=== PATIENT | female | born 1985 ===

== ENCOUNTER 2017-03-09 18:01 | Emergency (ER) | payer OTHER ==
[2017-03-09 18:12] VITALS: O2SAT 100
[2017-03-09] MEDS ORDERED: Iohexol 240 (50 ml) PO ONE (19:33)
[2017-03-09] MEDS ORDERED: Sodium Chloride 0.9% 1,000 ML IV STA (19:33)
--- NOTE | 2017-03-09 20:08 | ED PDOC ---
HPI: Abdomen Time Seen by Provider: 03/09/17 19:31 Chief Complaint (Nursing): Abdominal Pain Chief Complaint (Provider): abdominal pain History Per: Patient History/Exam Limitations: no limitations Associated Symptoms: Fever, Chills, Nausea, Vomiting, Diarrhea, Loss Of Appetite , Back Pain. denies: Chest Pain, Constipation, Urinary Symptoms Additional Complaint(s): 31yo F in ED with headache isolated to left side of head with photophobia mild nausea and abdominal pain (lower) with sweating profusely today with nausea and vomiting and diarrhea x 4-5days without sick contacts or foreign travel. Pt admits to feeling chills and body aches. Pt admits to hx of : liver lesions- with malignant tumor resection, endometriosis, PCOS, migraines, vertigo, hx of hypoglycemia and hx of hypotension, brain tumors and cervical cancer. Abnormal Vaginal Bleeding: No Past Medical History Reviewed: Historical Data, Nursing Documentation, Vital Signs Vital Signs: Last Vital Signs Temp 98.4 F 03/09/17 18:07 Pulse 60 03/09/17 18:07 Resp 19 03/09/17 18:07 BP 116/72 03/09/17 18:07 Pulse Ox 100 03/09/17 18:07 - Medical History PMH: Migraine, Seizures - Surgical History Surgical History: Cholecystectomy - Family History Family History: States: Unknown Family Hx - Home Medications Home Medications: Ambulatory Orders Medication Instructions Recorded Naproxen [Naprosyn] 500 mg PO Q12H #20 tab 11/09/15 Ciprofloxacin [Cipro] 500 mg PO BID #28 tab 02/14/16 Doxycycline Monohydrate [Mondoxyne 100 mg PO BID #28 capsule 02/14/16 Nl] Oxycodone HCl/Acetaminophen 1 tab PO Q4 PRN #20 tab 02/14/16 [Percocet 325 mg-5 mg] traMADol [Ultram] 50 mg PO TID PRN #20 tab 02/14/16 Ondansetron ODT [Zofran ODT] 4 mg PO Q8 PRN #12 odt 06/09/16 - Allergies Allergies/Adverse Reactions: Allergies Allergy/AdvReac Type Severity Reaction Status Date / Time No Known Allergies Allergy Verified 10/24/16 15:34 Review of Systems ROS Statement: Except As Marked, All Systems Reviewed And Found Negative Constitutional: Positive for: Fever, Chills Gastrointestinal: Positive for: Nausea, Vomiting, Abdominal Pain, Diarrhea Neurological: Positive for: Headache Physical Exam - Reviewed Nursing Documentation Reviewed: Yes Vital Signs Reviewed: Yes - Physical Exam Appears: Positive for: Non-toxic, No Acute Distress, Uncomfortable Head Exam: Positive for: ATRAUMATIC, NORMAL INSPECTION, NORMOCEPHALIC Skin: Positive for: Normal Color, Warm, DRY Eye Exam: Positive for: EOMI, Normal appearance, PERRL ENT: Positive for: Normal ENT Inspection Cardiovascular/Chest: Positive for: Regular Rate, Rhythm Respiratory: Positive for: CNT, Normal Breath Sounds Gastrointestinal/Abdominal: Positive for: Bowel Sounds, Soft, Tenderness (lower abd tenderness). Negative for: Organomegaly, Mass, Distended, Guarding Back: Positive for: Normal Inspection. Negative for: L CVA Tenderness, R CVA Tenderness Extremity: Positive for: Normal ROM Neurologic/Psych: Positive for: Alert, sheet metal helper II-XII (intact), Oriented, Mood/ Affect (intact), Cerebellar Tests (stable), Gait (stable). Negative for: Motor/ Sensory Deficits - ECG O2 Sat by Pulse Oximetry: 100 - Progress ED Course And Treament: pt will get NS, zofran and torodol for RUIZ and ab pain, will get CT scan of abd with PO and IV contrast and will cbc/cmp/UA Disposition - Clinical Impression Clinical Impression: Abdominal pain - Patient ED Disposition Is Patient to be Admitted: Transfer of Care - Disposition Referrals: Olivia Mercer MD [Primary Care Provider] - Disposition Time: 20:10 Condition: STABLE Patient Signed Over To: Altagracia Costa Handoff Comments: lab/Ct results
[2017-03-09 20:25] LABS: BASO # 0.1 K/uL (0.0-0.2); BASO % 0.7 % (0.0-2.0); EOS # 0.3 K/uL (0.0-0.7); HEMATOCRIT 42.1 % (34.0-47.0); LYMPH % 35.9 % (20.0-40.0); MEAN CELL VOLUME 88.1 fl (81.0-99.0); MEAN CORPUSCULAR HEMOGLOBIN 29.7 pg (27.0-31.0); MEAN CORPUSCULAR HGB CONC 33.7 g/dL (33.0-37.0); MEAN PLATELET VOLUME 8.4 fl (7.2-11.7); MONO # 0.5 K/uL (0.0-0.8); MONO % 6.2 % (0.0-10.0); NEUT # 4.5 K/uL (1.8-7.0); NEUT % 53.2 % (50.0-75.0); RED CELL DISTRIBUTION WIDTH 12.7 % (11.5-14.5); WHITE BLOOD COUNT 8.4 K/uL (4.8-10.8)
[2017-03-09 20:36] LABS: ALB/GLOB RATIO 1.4 (1.0-2.1); ALKALINE PHOSPHATASE 61 U/L (38-126); ALT/SGPT 24 U/L (9-52); AST/SGOT 21 U/L (14-36); BILIRUBIN,TOTAL 0.5 mg/dl (0.2-1.3); BLOOD UREA NITROGEN 9 mg/dl (7-17); CARBON DIOXIDE 24 mmol/L (22-30); CHLORIDE 104 mmol/L (98-107); GFR AFRICAN-AMERICAN > 60; GLUCOSE,RANDOM 83 mg/dL (65-105); POTASSIUM 3.9 MMOL/L (3.6-5.0); SODIUM 138 mmol/l (132-148); TOTAL PROTEIN 7.5 G/DL (6.3-8.2)
[2017-03-09 21:17] LABS: LIPASE 74 U/L (23-300)
[2017-03-09] MEDS ORDERED: Iohexol 240 (50 ml) ONE (21:27)
[2017-03-09 21:43] LABS: RBC URINE 2 /hpf (0-3); URINE BILIRUBIN NEGATIVE (NEGATIVE); URINE BLOOD NEGATIVE (NEGATIVE); URINE COLOR STRAW (YELLOW); URINE GLUCOSE (UA) NEG (Normal); URINE KETONE NEGATIVE (NEGATIVE); URINE LEUKOCYTE ESTERASE NEG Leu/uL (Negative); URINE PROTEIN NEGATIVE (NEGATIVE); URINE UROBILINOGEN 0.2-1.0 mg/dL (0.2-1.0); WBC URINE < 1 /hpf (0-5)
[2017-03-09] MEDS ORDERED: Sodium Chloride 0.9% 50 ML IV ONE (23:34)
[2017-03-09] MEDS ORDERED: Iohexol 300 100 ML IJ ONE (23:34)
--- NOTE | 2017-03-10 00:26 | CT ---
EXAM: CT Abdomen and Pelvis With Intravenous Contrast CLINICAL HISTORY: 31 years old, female; Pain; Abdominal pain; Localized; Lower; Prior surgery; Surgery date: 6+ months; Surgery type: Gall bladder removed. Liver small piece removed; Additional info: Severe abd pain lower aspect TECHNIQUE: Axial computed tomography images of the abdomen and pelvis with intravenous contrast. This CT exam was performed using one or more of the following dose reduction techniques: automated exposure control, adjustment of the mA and/or kV according to patient size, and/or use of iterative reconstruction technique. Coronal and sagittal reformatted images were created and reviewed. CONTRAST: 90 mL of [id number] administered intravenously. COMPARISON: CT - ABD PELVIS PO IV CONTRAST 10/24/2016 7:02:24 PM FINDINGS: Lower thorax: Minimal atelectasis. Probable small hiatal hernia. ABDOMEN: Liver: 6.0 x 4.7 x 6.3 cm lesion, indeterminate by CT criteria but grossly stable. Few too small to characterize lesions. Gallbladder and bile ducts: Cholecystectomy. No ductal dilation. Pancreas: No ductal dilation. No mass. Spleen: No splenomegaly. Adrenals: No mass. Kidneys and ureters: No mass. No hydronephrosis. Stomach and bowel: No definite mural thickening. No obstruction. Appendix: Normal caliber. No inflammation. PELVIS: Bladder: Unremarkable. Reproductive: 3.1 x 2.9 x 3.5 cm hypodense lesion within RIGHT ovary. ABDOMEN and PELVIS: Intraperitoneal space: No significant fluid collection. No free air. Bones/joints: No acute fracture. Soft tissues: Unremarkable. Vasculature: Unremarkable. No abdominal aortic aneurysm. Lymph nodes: No pathologically enlarged lymph nodes. IMPRESSION: 1. Probable RIGHT ovarian cyst. Consider ultrasound. 2. Liver lesion, incompletely characterized. Recommend nonemergent MRI. 3. Incidental/non-acute findings are described above.
--- NOTE | 2017-03-10 00:29 | ED PDOC ---
- Laboratory Results Result Diagrams: 03/09/17 20:10 03/09/17 20:10 - ECG O2 Sat by Pulse Oximetry: 100 - Progress ED Course And Treament: case endorsed to freelance writer from Gerald STOUT pending labs, CT abd/pelvis EXAM: CT Abdomen and Pelvis With Intravenous Contrast CLINICAL HISTORY: 31 years old, female; Pain; Abdominal pain; Localized; Lower; Prior surgery; Surgery date: 6+ months; Surgery type: Gall bladder removed. Liver small piece removed; Additional info: Severe abd pain lower aspect TECHNIQUE: Axial computed tomography images of the abdomen and pelvis with intravenous contrast. This CT exam was performed using one or more of the following dose reduction techniques : automated exposure control, adjustment of the mA and/or kV according to patient size, and/ or use of iterative reconstruction technique. Coronal and sagittal reformatted images were created and reviewed. CONTRAST: 90 mL of [id number] administered intravenously. COMPARISON: CT - ABD PELVIS PO IV CONTRAST 10/24/2016 7:02:24 PM FINDINGS: Lower thorax: Minimal atelectasis. Probable small hiatal hernia. ABDOMEN: Liver: 6.0 x 4.7 x 6.3 cm lesion, indeterminate by CT criteria but grossly stable. Few too small to characterize lesions. Gallbladder and bile ducts: Cholecystectomy. No ductal dilation. Pancreas: No ductal dilation. No mass. Spleen: No splenomegaly. Adrenals: No mass. Kidneys and ureters: No mass. No hydronephrosis. Stomach and bowel: No definite mural thickening. No obstruction. Appendix: Normal caliber. No inflammation. PELVIS: Bladder: Unremarkable. Reproductive: 3.1 x 2.9 x 3.5 cm hypodense lesion within RIGHT ovary ABDOMEN and PELVIS: Intraperitoneal space: No significant fluid collection. No free air. Bones/joints: No acute fracture. Soft tissues: Unremarkable. Vasculature: Unremarkable. No abdominal aortic aneurysm. Lymph nodes: No pathologically enlarged lymph nodes. IMPRESSION: 1. Probable RIGHT ovarian cyst. Consider ultrasound. 2. Liver lesion, incompletely characterized. Recommend nonemergent MRI. 3. Incidental/non-acute findings are described above. EXAM: US Pelvis Complete, Transabdominal CLINICAL HISTORY: 31 years old, female; Pain; Pelvic pain; Additional info: Right pelvic pain TECHNIQUE: Real-time transabdominal pelvic ultrasound (complete) with image documentation. COMPARISON: CT - ABD PELVIS PO IV CON 03/09/2017 11:46:02 PM FINDINGS: Uterus/cervix: Uterus measures 10.5 x 3.4 x 6.8 cm in size. No myometrial mass. Endometrium: 1.1 cm in thickness. Right ovary: 5.9 x 4.7 x 3.9 cm in size. 2.8 x 2.9 x 3.9 cm hypoechoic lesion with internal echoes. Normal flow. Left ovary: 3.9 x 2.0 x 1.9 cm in size. No mass. Normal flow. Free fluid: No significant free fluid. Bladder: Unremarkable as visualized. IMPRESSION: 1. Probable hemorrhagic RIGHT ovarian cyst. Recommend sonographic followup in 6 weeks to ensure resolution and exclude other etiologies. 2. Incidental/non-acute findings are described above. On re-eval, patient states she is feeling better;tolerating PO. Patient aware of liver lesion, being followed by specialist for it. Patient states she is due for colonoscopy and will schedule one vicky for further eval. Rx zofran provided. Follow up PMD/[facility] Consult[facility]/GI. Return to ED for worsening/concerning symptoms. Disposition - Clinical Impression Clinical Impression: Abdominal pain, Ovarian cyst, Liver lesion - POA Present On Arrival: None - Disposition Referrals: Olivia Mercer MD [Primary Care Provider] - Disposition: Routine/Home Disposition Time: 02:28 Condition: IMPROVED Prescriptions: Ondansetron [Zofran Odt] 4 mg PO Q8 PRN #10 odt PRN Reason: Nausea/Vomiting Instructions: Ovarian Cyst (ED), Abdominal Pain (ED)
--- NOTE | 2017-03-10 02:26 | US ---
EXAM: US Pelvis Complete, Transabdominal CLINICAL HISTORY: 31 years old, female; Pain; Pelvic pain; Additional info: Right pelvic pain TECHNIQUE: Real-time transabdominal pelvic ultrasound (complete) with image documentation. COMPARISON: CT - ABD PELVIS PO IV CON 03/09/2017 11:46:02 PM FINDINGS: Uterus/cervix: Uterus measures 10.5 x 3.4 x 6.8 cm in size. No myometrial mass. Endometrium: 1.1 cm in thickness. Right ovary: 5.9 x 4.7 x 3.9 cm in size. 2.8 x 2.9 x 3.9 cm hypoechoic lesion with internal echoes. Normal flow. Left ovary: 3.9 x 2.0 x 1.9 cm in size. No mass. Normal flow. Free fluid: No significant free fluid. Bladder: Unremarkable as visualized. IMPRESSION: 1. Probable hemorrhagic RIGHT ovarian cyst. Recommend sonographic followup in 6 weeks to ensure resolution and exclude other etiologies. 2. Incidental/non-acute findings are described above.
[2017-03-10 03:55] VITALS: BP 121/63; PULSE 89; RESP 16; TEMP 98
== END 2017-03-10 02:45 | disposition home or self-care (01) ==
LOC: H.ER 18:01
DX: N83.201 Unspecified ovarian cyst, right side (principal); R10.2 Pelvic and perineal pain; K76.89 Other specified diseases of liver

== ENCOUNTER 2018-08-15 19:43 | Emergency (ER) | payer OTHER, MEDICAID ==
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
[2018-08-15 22:30] LABS: BASO # 0.1 K/uL (0.0-0.2); BASO % 1.3 % (0.0-2.0); EOS # 0.4 K/uL (0.0-0.7); EOS % 5.5 % (0.0-4.0); HEMOGLOBIN 14.4 g/dL (12.0-16.0); LYMPH # 3.2 K/uL (1.0-4.3); LYMPH % 42.7 % (20.0-40.0); MEAN CELL VOLUME 90.1 fl (81.0-99.0); MEAN CORPUSCULAR HGB CONC 33.3 g/dL (33.0-37.0); MEAN PLATELET VOLUME 8.5 fl (7.2-11.7); MONO # 0.5 K/uL (0.0-0.8); MONO % 6.5 % (0.0-10.0); NEUT # 3.2 K/uL (1.8-7.0); RBC 4.81 Mil/uL (3.80-5.20); RED CELL DISTRIBUTION WIDTH 12.8 % (11.5-14.5); WHITE BLOOD COUNT 7.4 K/uL (4.8-10.8)
[2018-08-15 22:40] LABS: ALB/GLOB RATIO 1.4 (1.0-2.1); ALBUMIN 4.5 g/dL (3.5-5.0); ALT/SGPT 24 U/L (9-52); AST/SGOT 19 U/L (14-36); BLOOD UREA NITROGEN 17 mg/dl (7-17); CALCIUM 9.4 mg/dL (8.4-10.2); GFR NON-AFRICAN AMERICAN > 60
[2018-08-15 23:47] VITALS: BP 120/70; PULSE 78; RESP 18; TEMP 98
[2018-08-16 00:59] VITALS: O2SAT 98
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
== END 2018-08-15 23:58 | disposition home or self-care (01) ==
LOC: H.ER 19:43
DX: S13.4XXA Sprain of ligaments of cervical spine, initial encounter (principal); V43.52XA Car driver injured in collision with other type car in traffic accident, initial encounter; Y92.410 Unspecified street and highway as the place of occurrence of the external cause; Z86.73 Personal history of transient ischemic attack (TIA), and cerebral infarction without residual deficits